=== PATIENT | female | born 1975 | race Caucasian/White ===

== ENCOUNTER 2024-01-27 09:54 | Outpatient (CLI) | payer BC, SELFPAY ==
--- NOTE | ~2024-01-27 | US_ITS ---
EXAMINATION: US pelvic complete w TV DATE: 01/27/2024 10:20 INDICATION: Excessive and frequent menstruation with regular cycle. TECHNIQUE: Multiple transabdominal and transvaginal sonographic images of the pelvis were obtained. COMPARISON: None. FINDINGS: TRANSABDOMINAL ULTRASOUND: The uterus measures 9.2 x 5.2 x 6.4 cm. There is no free fluid in the pelvis. TRANSVAGINAL ULTRASOUND: The endometrial complex measures 12 mm in thickness. There is a 3.5 cm intramural fibroid. The right ovary measures 4.2 x 1.6 x 3.9 cm. The left ovary is not visualized. IMPRESSION: 1. Uterine fibroid. 2. Left ovary not visualized. Reviewed, dictated and finalized at location A. [facility]
== END 2024-01-27 09:55 | disposition home or self-care (01) ==
LOC: MICIMG 09:55
PROVIDERS: PCP Obstetrics & Gynecology; Visit Provider Obstetrics & Gynecology
DX: D25.1 Intramural leiomyoma of uterus (principal)
CPT/HCPCS: 76830; 76856